=== PATIENT | male | born 1995 | race Caucasian/White ===

== ENCOUNTER 2017-04-05 20:12 | Emergency (ER) | payer OTHER ==
[~2017-04-05] VITALS: Ht 190.5 cm; Wt 104.0 kg
[~2017-04-05 20:12] MED LIST: CONCERTA36 MG PO
[2017-04-05] MEDS ORDERED: NAPROSYN500 MG PO (21:28)
[2017-04-05] MEDS ORDERED: NORCO 5/3251 TABLET PO (21:28)
[2017-04-05] MEDS ORDERED: KEFLEX500 MG PO (21:28)
[2017-04-05] MEDS ORDERED: BACTRIM,SEPT1 TABLET PO (21:28)
[2017-04-05 21:39] VITALS: BP 148/73
== END 2017-04-05 21:39 | disposition home or self-care (01) ==
LOC: RME 20:12 → EME 20:12 → RME 21:39
PROC: 0H98XZZ Drainage of Buttock Skin, External Approach (ICD-10-PCS; principal; 2017-04-05)
DX: L05.01 Pilonidal cyst with abscess (principal)
CPT/HCPCS: 99281; 99284

== ENCOUNTER 2017-04-07 18:24 | Emergency (ER) | payer OTHER ==
[~2017-04-07] VITALS: Ht 190.5 cm; Wt 104.0 kg
[~2017-04-07 18:24] MED LIST changes: +BACTRIM,SEPT1 TABLET PO; +KEFLEX500 MG PO; +NAPROSYN500 MG PO; +NORCO 5/3251 TABLET PO
[2017-04-07 19:42] VITALS: BP 121/61
== END 2017-04-07 19:42 | disposition home or self-care (01) ==
LOC: RME 18:24 → EME 18:24 → RME 19:42
DX: Z48.01 Encounter for change or removal of surgical wound dressing (principal)
CPT/HCPCS: 99281; 99284

== ENCOUNTER 2018-03-14 14:56 | Emergency (ER) | payer SELFPAY ==
[~2018-03-14] VITALS: Ht 190.5 cm; Wt 116.0 kg
[2018-03-14] MEDS ORDERED: PERCOCET 5/31 TABLET PO (17:00)
[2018-03-14] MEDS ORDERED: AUGMENTIN875 MG PO (17:00)
[2018-03-14 17:29] VITALS: BP 118/68
== END 2018-03-14 17:30 | disposition home or self-care (01) ==
LOC: EME 14:56
PROC: 0H98XZZ Drainage of Buttock Skin, External Approach (ICD-10-PCS; principal; 2018-03-14)
DX: L05.01 Pilonidal cyst with abscess (principal)
CPT/HCPCS: 99281; 99284

== ENCOUNTER 2018-04-28 17:37 | Emergency (ER) | payer SELFPAY ==
[~2018-04-28] VITALS: Ht 188 cm; Wt 112.5 kg
[~2018-04-28 17:37] MED LIST changes: +AUGMENTIN875 MG PO; +PERCOCET 5/31 TABLET PO
[2018-04-28] MEDS ORDERED: BACTRIM,SEPT1 TABLET PO (19:15)
[2018-04-28] MEDS ORDERED: KEFLEX500 MG PO (19:15)
[2018-04-28] MEDS ORDERED: PERCOCET 5/31 TABLET PO (19:15)
[2018-04-28 19:21] VITALS: BP 151/72
== END 2018-04-28 19:23 | disposition home or self-care (01) ==
LOC: EME 17:37
PROC: 0H98XZZ Drainage of Buttock Skin, External Approach (ICD-10-PCS; principal; 2018-04-28)
DX: L05.91 Pilonidal cyst without abscess (principal)
CPT/HCPCS: 99281; 99284